=== PATIENT | female | born 1950 | race Asian ===

== ENCOUNTER → 2018-11-21 | Outpatient (CLI) | payer MEDICARE, OTHER ==
[~2018-11-21] MED LIST: ASPI-556 PO; ATEN50TA PO; MULT-1259 PO; OMEG1CAP6 PO; SIMV-260 PO; TRAM50TA4 PO
== END | disposition home or self-care (01) ==
LOC: RADPV 10:09
PROVIDERS: ATTEND Internal Medicine
DX: R74.8 Abnormal levels of other serum enzymes (principal)
CPT/HCPCS: 76700

== ENCOUNTER 2023-01-04 10:39 | Emergency (ER) | payer MEDICARE, OTHER ==
[~2023-01-04] VITALS: Ht 152.4 cm; Wt 61.4 kg
[~2023-01-04 10:39] MED LIST changes: +ATEN-72 PO; -ATEN50TA PO; +TRAM-559 PO; -TRAM50TA4 PO
[2023-01-04 10:43] VITALS: TEMP 98.2
[2023-01-04] MEDS ORDERED: KETOROLAC TROMETHAMINE 30 MG/ML VIAL IM ONE (12:00)
[2023-01-04] MEDS ORDERED: IBUP-1492 PO (12:30)
[2023-01-04 12:47] VITALS: BP 151/81; PULSE 71; RESP 16
== END 2023-01-04 13:08 | disposition home or self-care (01) ==
LOC: EMS 10:53
DX: M79.672 Pain in left foot (principal); M19.90 Unspecified osteoarthritis, unspecified site; E78.00 Pure hypercholesterolemia, unspecified; I10 Essential (primary) hypertension
CPT/HCPCS: 99283; 96372; J1885

== ENCOUNTER 2024-02-20 09:34 | Emergency (ER) | payer MEDICARE, OTHER ==
[~2024-02-20] VITALS: Ht 142.2 cm; Wt 61.4 kg
[~2024-02-20 09:34] MED LIST changes: +IBUP-1492 PO; -TRAM-559 PO; +TRAM50TA5 PO
[2024-02-20] MEDS ORDERED: AMLO-257 PO (09:47)
[2024-02-20] MEDS ORDERED: CARV12 PO (09:47)
[2024-02-20] MEDS ORDERED: ATOR40TA28 PO (09:47)
[2024-02-20 09:49] VITALS: BP 126/56; PULSE 59; RESP 20; TEMP 98.7
[2024-02-20 09:53] LABS: COVID AG,FIA SOURCE NASAL SWAB
[2024-02-20 10:29] LABS: INFLUENZA TYPE A NEGATIVE FOR TYPE A (NEGATIVE); INFLUENZA TYPE B NEGATIVE FOR TYPE B (NEGATIVE)
[2024-02-20 10:31] LABS: SARS-COV2 (COVID) ANTIGEN,FIA Positive (Negative)
[2024-02-20] MEDS ORDERED: ACET-2247 PO (12:59)
[2024-02-20] MEDS ORDERED: AZIT-164 PO (12:59)
[2024-02-20] MEDS: AZITHROMYCIN 500 MG TABLET PO ONE (13:05)
== END 2024-02-20 13:15 | disposition home or self-care (01) ==
LOC: EMS 09:34
DX: U07.1 COVID-19 (principal); M19.90 Unspecified osteoarthritis, unspecified site; E78.00 Pure hypercholesterolemia, unspecified; I10 Essential (primary) hypertension
CPT/HCPCS: 99284; 71046; 87426; 87804; J0456

== ENCOUNTER 2024-07-08 08:16 | Emergency (ER) | payer MEDICARE, OTHER ==
[~2024-07-08] VITALS: Ht 147.3 cm; Wt 61.4 kg
[~2024-07-08 08:16] MED LIST changes: +ACET-2247 PO; +AMLO-257 PO; -ATEN-72 PO; +ATOR40TA28 PO; +AZIT-164 PO; +CARV12 PO; -IBUP-1492 PO; -SIMV-260 PO; -TRAM50TA5 PO
[2024-07-08 08:22] VITALS: BP 145/37; PULSE 66; RESP 20; TEMP 98.3; O2SAT 100
[2024-07-08] MEDS ORDERED: ASPI-1444 PO (11:07)
[2024-07-08] MEDS: IBUPROFEN 600 MG TABLET PO ONE (11:09)
[2024-07-08] MEDS ORDERED: IBUP-1492 PO (11:54)
== END 2024-07-08 12:12 | disposition home or self-care (01) ==
LOC: EMS 08:16
DX: R07.81 Pleurodynia (principal); R07.89 Other chest pain; I10 Essential (primary) hypertension; E78.00 Pure hypercholesterolemia, unspecified; Z79.82 Long term (current) use of aspirin; Z79.899 Other long term (current) drug therapy
CPT/HCPCS: 71100; 99283

== ENCOUNTER 2024-07-10 13:46 | Emergency (ER) | payer MEDICARE, OTHER ==
[~2024-07-10] VITALS: Ht 147.3 cm; Wt 61.4 kg
[~2024-07-10 13:46] MED LIST changes: +ASPI-1444 PO; +IBUP-1492 PO
[2024-07-10 14:14] VITALS: BP 141/51; PULSE 74; RESP 16; TEMP 98.4; O2SAT 98
[2024-07-10 14:46] LABS: BASOPHILS % (AUTO) 0.7 % (0.0-2.0); EOSINOPHILS % (AUTO) 1.9 % (1.0-6.0); HEMATOCRIT 35.3 % (36-46); LYMPHOCYTES # (AUTO) 1.3 K/uL (1.0-4.8); LYMPHOCYTES % (AUTO) 18.1 % (22.0-44.0); MEAN CORPUSCULAR HEMOGLOBIN 31.6 pg (26.0-34.0); MEAN CORPUSCULAR HGB CONC 34.1 G/dL (31.0-37.0); MEAN CORPUSCULAR VOLUME 93 fL (80-100); MONOCYTES # (AUTO) 0.6 K/uL (0.1-1.0); MONOCYTES % (AUTO) 8.9 % (2.0-9.0); NEUTROPHILS % (AUTO) 70.4 % (40.0-70.0); PLATELET COUNT (AUTO) 275 K/uL (150-450); RED CELL DISTRIBUTION WIDTH 13.2 % (11.5-14.5); WHITE BLOOD COUNT (AUTO) 7.2 K/uL (4.5-11.0)
[2024-07-10 14:59] LABS: CALCIUM, TOTAL 8.7 mg/dL (8.8-10.5); CREATININE 0.91 mg/dL (0.60-1.30); POTASSIUM 4.1 mmol/L (3.5-5.1)
[2024-07-10 16:27] LABS: TROPONIN I-HIGH SENSITIVITY 9 ng/L (<51)
== END 2024-07-10 16:48 | disposition home or self-care (01) ==
LOC: EMS 14:01
DX: I95.1 Orthostatic hypotension (principal); R42 Dizziness and giddiness; H53.8 Other visual disturbances; E78.00 Pure hypercholesterolemia, unspecified; I10 Essential (primary) hypertension; Z79.82 Long term (current) use of aspirin; Z79.899 Other long term (current) drug therapy
CPT/HCPCS: 80048; 84484; 85025; 93005; 99284

== ENCOUNTER 2024-07-14 10:18 | Emergency (ER) | payer MEDICARE, OTHER ==
[~2024-07-14] VITALS: Ht 147.3 cm; Wt 61.4 kg
[~2024-07-14 10:18] MED LIST changes: -ACET-2247 PO; -ASPI-556 PO; -AZIT-164 PO; -OMEG1CAP6 PO
[2024-07-14 10:20] VITALS: TEMP 98.5
[2024-07-14] MEDS: HYDROCODONE/ACETAMINOPHEN 5-325 MG TABLET PO ONE (11:12)
[2024-07-14] MEDS: LIDOCAINE 5% TRANSDERMAL PATCH TD ONE (11:13)
[2024-07-14] MEDS ORDERED: IBUP-1506 PO (11:33)
[2024-07-14] MEDS ORDERED: ACET-2247 PO (11:46)
[2024-07-14 12:00] VITALS: BP 125/56; PULSE 78; RESP 17; O2SAT 99
== END 2024-07-14 12:16 | disposition home or self-care (01) ==
LOC: EMS 10:18
DX: R07.81 Pleurodynia (principal); M19.90 Unspecified osteoarthritis, unspecified site; E78.00 Pure hypercholesterolemia, unspecified; I10 Essential (primary) hypertension; Z79.82 Long term (current) use of aspirin; Z79.899 Other long term (current) drug therapy
CPT/HCPCS: 99283

== ENCOUNTER 2024-12-26 08:16 | Emergency (ER) | payer MEDICARE, OTHER ==
[~2024-12-26] VITALS: Ht 147.3 cm; Wt 59.1 kg
[~2024-12-26 08:16] MED LIST changes: +ACET-2247 PO; +IBUP-1506 PO
[2024-12-26] MEDS: GuaiFENesin/D-METHORPHAN [SUGAR-FREE] 200-20MG/10 ML SYRUP UDCUP PO ONE (08:55)
[2024-12-26] MEDS: BENZONATATE 100 MG CAPSULE PO ONE (08:55)
[2024-12-26] MEDS: ACETAMINOPHEN 500 MG TABLET PO ONE (08:55)
[2024-12-26 09:29] LABS: ANION GAP 6 mmol/L (8-16); CALCIUM, TOTAL 8.5 mg/dL (8.8-10.5); CARBON DIOXIDE 28 mmol/L (22-29); CHLORIDE 102 mmol/L (98-107); CREATININE 0.68 mg/dL (0.60-1.30); GLOMERULAR FILTR. RATE CALC > 60 mL/min (>60); GLUCOSE,RANDOM 157 mg/dL (70-110); POTASSIUM 3.7 mmol/L (3.5-5.1); SODIUM SERUM 136 mmol/L (136-145); UREA NITROGEN, BLOOD 18 mg/dL (7-18)
[2024-12-26 09:32] LABS: BASOPHILS % (AUTO) 0.5 % (0.0-2.0); EOSINOPHILS % (AUTO) 5.1 % (1.0-6.0); HEMATOCRIT 33.1 % (36-46); HEMOGLOBIN 11.1 g/dL (12.0-16.0); LYMPHOCYTES # (AUTO) 0.9 K/uL (1.0-4.8); LYMPHOCYTES % (AUTO) 13.1 % (22.0-44.0); MEAN CORPUSCULAR HEMOGLOBIN 30.7 pg (26.0-34.0); MEAN CORPUSCULAR HGB CONC 33.6 G/dL (31.0-37.0); MEAN CORPUSCULAR VOLUME 91 fL (80-100); MONOCYTES # (AUTO) 0.6 K/uL (0.1-1.0); MONOCYTES % (AUTO) 9.6 % (2.0-9.0); NEUTROPHILS # (AUTO) 4.7 K/uL (1.8-7.7); NEUTROPHILS % (AUTO) 71.7 % (40.0-70.0); PLATELET COUNT (AUTO) 247 K/uL (150-450); RED BLOOD CELL COUNT(AUTO) 3.62 MIL/uL (4.00-5.20); RED CELL DISTRIBUTION WIDTH 13.3 % (11.5-14.5); WHITE BLOOD COUNT (AUTO) 6.6 K/uL (4.5-11.0)
[2024-12-26 09:53] LABS: TROPONIN I-HIGH SENSITIVITY 7 ng/L (<51)
[2024-12-26] MEDS ORDERED: GUAIFDM PO (10:18)
[2024-12-26] MEDS ORDERED: ACET-66 PO (10:18)
[2024-12-26] MEDS ORDERED: DOXY-354 PO (10:18)
[2024-12-26] MEDS ORDERED: BENZ-227 PO (10:18)
[2024-12-26 10:30] VITALS: BP 137/59; PULSE 72; RESP 18; O2SAT 98
== END 2024-12-26 10:58 | disposition home or self-care (01) ==
LOC: EMS 08:17
DX: J18.9 Pneumonia, unspecified organism (principal); J06.9 Acute upper respiratory infection, unspecified; I10 Essential (primary) hypertension; E78.00 Pure hypercholesterolemia, unspecified; M19.90 Unspecified osteoarthritis, unspecified site; Z79.82 Long term (current) use of aspirin; Z79.899 Other long term (current) drug therapy
CPT/HCPCS: 71045; 80048; 83880; 84484; 85025; 93005; 99285; 36415-L1; 36415-TC

== ENCOUNTER 2025-01-03 09:56 | Emergency (ER) | payer MEDICARE, OTHER ==
[~2025-01-03] VITALS: Ht 154.9 cm; Wt 65.9 kg
[~2025-01-03 09:56] MED LIST changes: -ACET-2247 PO; +ACET-66 PO; +BENZ-227 PO; +DOXY-354 PO; +GUAIFDM PO; -IBUP-1492 PO; -IBUP-1506 PO
[2025-01-03 10:18] VITALS: TEMP 98.9
[2025-01-03 10:55] LABS: BASOPHILS % (AUTO) 0.6 % (0.0-2.0); EOSINOPHILS % (AUTO) 0.9 % (1.0-6.0); HEMATOCRIT 36.2 % (36-46); HEMOGLOBIN 12.2 g/dL (12.0-16.0); LYMPHOCYTES # (AUTO) 1.3 K/uL (1.0-4.8); LYMPHOCYTES % (AUTO) 13.5 % (22.0-44.0); MEAN CORPUSCULAR HEMOGLOBIN 30.3 pg (26.0-34.0); MEAN CORPUSCULAR HGB CONC 33.8 G/dL (31.0-37.0); MEAN CORPUSCULAR VOLUME 90 fL (80-100); MONOCYTES # (AUTO) 0.7 K/uL (0.1-1.0); MONOCYTES % (AUTO) 7.6 % (2.0-9.0); NEUTROPHILS # (AUTO) 7.3 K/uL (1.8-7.7); NEUTROPHILS % (AUTO) 77.4 % (40.0-70.0); PLATELET COUNT (AUTO) 311 K/uL (150-450); RED BLOOD CELL COUNT(AUTO) 4.04 MIL/uL (4.00-5.20); RED CELL DISTRIBUTION WIDTH 13.3 % (11.5-14.5); WHITE BLOOD COUNT (AUTO) 9.4 K/uL (4.5-11.0)
[2025-01-03 11:08] LABS: PROTHROMBIN TIME 10.4 SEC (9.4-11.6)
[2025-01-03 11:19] LABS: ANION GAP 7 mmol/L (8-16); CALCIUM, TOTAL 9.1 mg/dL (8.8-10.5); CARBON DIOXIDE 27 mmol/L (22-29); CHLORIDE 102 mmol/L (98-107); CREATININE 0.65 mg/dL (0.60-1.30); GLOMERULAR FILTR. RATE CALC > 60 mL/min (>60); GLUCOSE,RANDOM 118 mg/dL (70-110); SODIUM SERUM 136 mmol/L (136-145); UREA NITROGEN, BLOOD 15 mg/dL (7-18)
[2025-01-03 11:21] LABS: ALBUMIN 3.7 g/dL (3.4-5.0); BILIRUBIN,DIRECT 0.2 mg/dL (0.00-0.20); BILIRUBIN,TOTAL 0.6 mg/dL (0.1-1.0); TOTAL PROTEIN, SERUM 7.3 g/dL (6.4-8.2)
[2025-01-03] MEDS: ACETAMINOPHEN 500 MG TABLET PO ONE (12:17)
[2025-01-03] MEDS: FAMOTIDINE 20 MG/2 ML VIAL IVP ONE (12:18)
[2025-01-03] MEDS ORDERED: IOHEXOL 350 MG/ML 100 ML VIAL ONE (12:20)
[2025-01-03] MEDS ORDERED: SODIUM CHLORIDE 0.9% 100 ML ONE (12:20)
[2025-01-03 16:12] LABS: APPEARANCE,URINE CLEAR (CLEAR); BILIRUBIN,URINE NEGATIVE (NEGATIVE); COLOR,URINE LIGHT YELLOW (YELLOW); GLUCOSE, URINE (UA) NEGATIVE (NEGATIVE); KETONES,URINE NEGATIVE (NEGATIVE); LEUKOCYTE ESTERASE ,URINE NEGATIVE (NEGATIVE); NITRATE,URINE NEGATIVE (NEGATIVE); OCCULT BLOOD,URINE NEGATIVE (NEGATIVE); PROTEIN,URINE NEGATIVE (NEGATIVE); UROBILINOGEN,URINE <=1.0 mg/dL (<=1.0)
[2025-01-03 16:20] VITALS: BP 141/83; PULSE 75; RESP 18; O2SAT 99
[2025-01-03] MEDS ORDERED: CIPR-515 PO (16:28)
[2025-01-03] MEDS ORDERED: METR500 PO (16:28)
== END 2025-01-03 17:03 | disposition home or self-care (01) ==
LOC: EMS 10:16
DX: K52.9 Noninfective gastroenteritis and colitis, unspecified (principal); K62.5 Hemorrhage of anus and rectum; I10 Essential (primary) hypertension; E78.00 Pure hypercholesterolemia, unspecified; Z79.82 Long term (current) use of aspirin; Z79.899 Other long term (current) drug therapy
CPT/HCPCS: 99285; 74177; 96374; 80048; 80076; 81003; 82271; 83690; 85025; 85610; 85730; 86850; 86900; 86901; 36415; Q9967; J3490; J7050